=== PATIENT | male | born 1955 | race Caucasian/White ===

== ENCOUNTER → 2019-06-23 11:08 | Outpatient (BNVA) | payer OTHER, SELFPAY | PROVIDERS: Family Provider Family Medicine; PCP Family Medicine; Visit Provider Internal Medicine Cardiovascular Disease | DX: I48.91 Unspecified atrial fibrillation (principal) | CPT/HCPCS: 85610 ==

== ENCOUNTER → 2019-07-21 10:12 | Outpatient (BNVA) | payer OTHER, SELFPAY | PROVIDERS: Family Provider Family Medicine; PCP Family Medicine; Visit Provider Internal Medicine Cardiovascular Disease | DX: I48.91 Unspecified atrial fibrillation (principal) | CPT/HCPCS: 85610 ==

== ENCOUNTER → 2019-08-04 09:32 | Outpatient (BNVA) | payer OTHER, SELFPAY | PROVIDERS: Family Provider Family Medicine; PCP Family Medicine; Visit Provider Internal Medicine Cardiovascular Disease | DX: I48.91 Unspecified atrial fibrillation (principal) | CPT/HCPCS: 85610 ==

== ENCOUNTER → 2019-08-11 09:51 | Outpatient (BNVA) | payer OTHER, SELFPAY | PROVIDERS: Family Provider Family Medicine; PCP Family Medicine; Visit Provider Internal Medicine Cardiovascular Disease | DX: I48.91 Unspecified atrial fibrillation (principal); Z79.01 Long term (current) use of anticoagulants | CPT/HCPCS: 85610 ==

== ENCOUNTER → 2019-08-25 10:14 | Outpatient (BNVA) | payer OTHER, SELFPAY | PROVIDERS: Family Provider Family Medicine; PCP Family Medicine; Visit Provider Internal Medicine Cardiovascular Disease | DX: I48.91 Unspecified atrial fibrillation (principal) | CPT/HCPCS: 85610 ==

== ENCOUNTER → 2019-09-22 09:46 | Outpatient (BNVA) | payer OTHER, SELFPAY | PROVIDERS: Family Provider Family Medicine; PCP Family Medicine; Visit Provider Internal Medicine Cardiovascular Disease | DX: I48.91 Unspecified atrial fibrillation (principal) | CPT/HCPCS: 85610 ==

== ENCOUNTER → 2019-10-06 11:05 | Outpatient (BNVA) | payer OTHER, SELFPAY | PROVIDERS: Family Provider Family Medicine; PCP Family Medicine; Visit Provider Internal Medicine Cardiovascular Disease | DX: I48.91 Unspecified atrial fibrillation (principal) | CPT/HCPCS: 85610 ==

== ENCOUNTER → 2019-11-04 09:41 | Outpatient (BNVA) | payer OTHER, SELFPAY | PROVIDERS: Family Provider Family Medicine; PCP Family Medicine; Visit Provider Internal Medicine Cardiovascular Disease | DX: I48.91 Unspecified atrial fibrillation (principal) | CPT/HCPCS: 85610 ==

== ENCOUNTER → 2019-12-01 11:13 | Outpatient (BNVA) | payer OTHER, SELFPAY | PROVIDERS: Family Provider Family Medicine; PCP Family Medicine; Visit Provider Internal Medicine Cardiovascular Disease | DX: I48.91 Unspecified atrial fibrillation (principal) | CPT/HCPCS: 85610 ==

== ENCOUNTER → 2019-12-29 11:34 | Outpatient (BNVA) | payer OTHER, SELFPAY | PROVIDERS: Family Provider Family Medicine; PCP Family Medicine; Visit Provider Internal Medicine Cardiovascular Disease | DX: I48.91 Unspecified atrial fibrillation (principal); Z79.01 Long term (current) use of anticoagulants | CPT/HCPCS: 85610 ==

== ENCOUNTER → 2020-02-02 11:01 | Outpatient (BNVA) | payer OTHER, SELFPAY | PROVIDERS: Family Provider Family Medicine; PCP Family Medicine; Visit Provider Internal Medicine Cardiovascular Disease | DX: I48.91 Unspecified atrial fibrillation (principal); Z79.01 Long term (current) use of anticoagulants | CPT/HCPCS: 85610 ==

== ENCOUNTER 2020-02-04 13:34 | Outpatient (CLI) | payer OTHER, SELFPAY ==
[2020-02-04 14:10] VITALS: BMI 33.5
--- NOTE | 2020-02-04 14:10 | ECG_ITS ---
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 Interpretive Statements NAME OF STUDY: TREADMILL STRESS TEST INDICATION: DOT CLEARANCE RESULTS BRANDON TO RETURN TO WORK EXERCISE DATA: The patient was exercised by Zane protocol. Baseline heart rate was 109 beats per minute. Baseline blood pressure was 101/74 millimeters of mercury. Target heart rate was 157 beats per minute. Maximum heart rate achieved was 187, which was 119% of the target heart rate. Maximum blood pressure was 186/86 millimeters of mercury. Total exercise time was 4 minutes 49 seconds. Maximum METs achieved was 7.0, maximum VO2 was 24.5. The reason for ending the test was maximum effort achieved. The patient complained of during the stress test, which then resolved at the end of the test. ELECTROCARDIOGRAM: BASELINE: Showed atrial fibrillation, normal axis, no significant ST-T changes at the baseline noted. EXERCISE: At the peak exercise level, no significant ST-T changes suggestive of ischemia noted. RECOVERY: During the recovery period, heart rate dropped appropriately. No significant ST-T changes in the recovery suggestive of ischemia noted. CONCLUSION: 1. Exercise capacity poor. 2. Heart rate response was appropriate. 3. Blood pressure response was appropriate. 4. Symptoms not suggestive of ischemia. 5. Electrocardiogram portion of the stress test was not suggestive of ischemia. 6. Nuclear scan will be documented separately. Please note that due to poor exercise capacity and underachievement of METs EKG portion was stress test will be of low yield Electronically Signed On 02-04-2020 20:18:52 CDT by Dina Lin M.D. [email or web address]
[2020-02-04 14:32] VITALS: BP 156/80; PULSE 99
== END 2020-02-04 13:35 | disposition home or self-care (01) ==
LOC: CDL 13:39
PROVIDERS: PCP Family Medicine; Visit Provider Internal Medicine Cardiovascular Disease
DX: I35.0 Nonrheumatic aortic (valve) stenosis (principal); I48.91 Unspecified atrial fibrillation; Z79.01 Long term (current) use of anticoagulants; I25.10 Atherosclerotic heart disease of native coronary artery without angina pectoris
CPT/HCPCS: 93017

== ENCOUNTER → 2020-02-26 16:10 | Outpatient (BNVA) | payer OTHER, SELFPAY | PROVIDERS: PCP Family Medicine; Visit Provider Internal Medicine Cardiovascular Disease | DX: I48.91 Unspecified atrial fibrillation (principal); Z79.01 Long term (current) use of anticoagulants | CPT/HCPCS: 85610 ==

== ENCOUNTER → 2020-03-29 08:25 | Outpatient (BNVA) | payer OTHER, SELFPAY | PROVIDERS: PCP Family Medicine; Visit Provider Internal Medicine Cardiovascular Disease | DX: I48.91 Unspecified atrial fibrillation (principal); Z79.01 Long term (current) use of anticoagulants | CPT/HCPCS: 85610 ==

== ENCOUNTER → 2020-04-26 08:31 | Outpatient (BNVA) | payer OTHER, SELFPAY | PROVIDERS: PCP Family Medicine; Visit Provider Internal Medicine Cardiovascular Disease | DX: I48.91 Unspecified atrial fibrillation (principal); Z79.01 Long term (current) use of anticoagulants | CPT/HCPCS: 85610 ==

== ENCOUNTER → 2020-05-03 10:56 | Outpatient (BNVA) | payer OTHER, SELFPAY | PROVIDERS: PCP Family Medicine; Visit Provider Internal Medicine Cardiovascular Disease | DX: I48.91 Unspecified atrial fibrillation (principal); Z79.01 Long term (current) use of anticoagulants | CPT/HCPCS: 85610 ==

== ENCOUNTER → 2020-05-17 16:00 | Outpatient (BNVA) | payer OTHER, SELFPAY | PROVIDERS: PCP Family Medicine; Visit Provider Internal Medicine Cardiovascular Disease | DX: I48.91 Unspecified atrial fibrillation (principal); Z79.01 Long term (current) use of anticoagulants | CPT/HCPCS: 85610 ==

== ENCOUNTER → 2020-05-24 13:27 | Outpatient (BNVA) | payer OTHER, SELFPAY | PROVIDERS: PCP Family Medicine; Visit Provider Internal Medicine Cardiovascular Disease | DX: I48.91 Unspecified atrial fibrillation (principal); Z79.01 Long term (current) use of anticoagulants | CPT/HCPCS: 85610 ==

== ENCOUNTER → 2020-06-07 13:15 | Outpatient (BNVA) | payer OTHER, SELFPAY | PROVIDERS: PCP Family Medicine; Visit Provider Internal Medicine Cardiovascular Disease | DX: I48.91 Unspecified atrial fibrillation (principal) | CPT/HCPCS: 85610 ==

== ENCOUNTER → 2020-07-05 11:07 | Outpatient (BNVA) | payer OTHER, SELFPAY | PROVIDERS: PCP Family Medicine; Visit Provider Internal Medicine Cardiovascular Disease | DX: I48.91 Unspecified atrial fibrillation (principal); Z79.01 Long term (current) use of anticoagulants | CPT/HCPCS: 85610 ==

== ENCOUNTER → 2020-08-09 11:38 | Outpatient (BNVA) | payer OTHER, SELFPAY | PROVIDERS: PCP Family Medicine; Visit Provider Internal Medicine Cardiovascular Disease | DX: I48.91 Unspecified atrial fibrillation (principal); Z79.01 Long term (current) use of anticoagulants | CPT/HCPCS: 85610 ==

== ENCOUNTER → 2020-09-06 12:56 | Outpatient (BNVA) | payer OTHER, SELFPAY | PROVIDERS: PCP Family Medicine; Visit Provider Internal Medicine Cardiovascular Disease | DX: I48.91 Unspecified atrial fibrillation (principal); Z79.01 Long term (current) use of anticoagulants | CPT/HCPCS: 85610 ==

== ENCOUNTER → 2020-10-04 13:11 | Outpatient (BNVA) | payer OTHER, SELFPAY | PROVIDERS: PCP Family Medicine; Visit Provider Internal Medicine Cardiovascular Disease | DX: I48.91 Unspecified atrial fibrillation (principal); Z79.01 Long term (current) use of anticoagulants | CPT/HCPCS: 85610 ==

== ENCOUNTER → 2020-11-01 08:51 | Outpatient (BNVA) | payer OTHER, SELFPAY | PROVIDERS: PCP Family Medicine; Visit Provider Internal Medicine Cardiovascular Disease | DX: I48.91 Unspecified atrial fibrillation (principal); Z79.01 Long term (current) use of anticoagulants | CPT/HCPCS: 85610 ==

== ENCOUNTER → 2020-11-08 08:36 | Outpatient (BNVA) | payer OTHER, SELFPAY | PROVIDERS: PCP Family Medicine; Visit Provider Internal Medicine Cardiovascular Disease | DX: I48.91 Unspecified atrial fibrillation (principal); Z79.01 Long term (current) use of anticoagulants | CPT/HCPCS: 85610 ==

== ENCOUNTER → 2020-11-29 09:13 | Outpatient (BNVA) | payer OTHER, SELFPAY | PROVIDERS: PCP Family Medicine; Visit Provider Nurse Practitioner Family | DX: Z79.01 Long term (current) use of anticoagulants (principal) | CPT/HCPCS: 85610 ==

== ENCOUNTER → 2020-12-02 13:54 | Outpatient (BNVA) | payer OTHER, SELFPAY | PROVIDERS: PCP Family Medicine; Visit Provider Internal Medicine Cardiovascular Disease | DX: I48.91 Unspecified atrial fibrillation (principal); Z79.01 Long term (current) use of anticoagulants | CPT/HCPCS: 85610 ==

== ENCOUNTER → 2020-12-27 10:55 | Outpatient (BNVA) | payer OTHER, SELFPAY | PROVIDERS: PCP Family Medicine; Visit Provider Internal Medicine Cardiovascular Disease | DX: I48.91 Unspecified atrial fibrillation (principal); Z79.01 Long term (current) use of anticoagulants | CPT/HCPCS: 85610 ==

== ENCOUNTER → 2021-01-24 11:23 | Outpatient (BNVA) | payer OTHER, SELFPAY | PROVIDERS: PCP Family Medicine; Visit Provider Internal Medicine Cardiovascular Disease | DX: I48.91 Unspecified atrial fibrillation (principal) | CPT/HCPCS: 85610 ==

== ENCOUNTER → 2021-02-22 09:56 | Outpatient (BNVA) | payer OTHER, SELFPAY | PROVIDERS: PCP Family Medicine; Visit Provider Internal Medicine Cardiovascular Disease | DX: I48.91 Unspecified atrial fibrillation (principal); Z79.01 Long term (current) use of anticoagulants | CPT/HCPCS: 85610 ==

== ENCOUNTER → 2021-03-21 10:19 | Outpatient (BNVA) | payer OTHER, SELFPAY | PROVIDERS: PCP Family Medicine; Visit Provider Internal Medicine Cardiovascular Disease | DX: I48.91 Unspecified atrial fibrillation (principal); Z79.01 Long term (current) use of anticoagulants | CPT/HCPCS: 85610 ==

== ENCOUNTER → 2021-04-18 11:07 | Outpatient (BNVA) | payer OTHER, SELFPAY | PROVIDERS: PCP Family Medicine; Visit Provider Internal Medicine Cardiovascular Disease | DX: I48.91 Unspecified atrial fibrillation (principal); Z79.01 Long term (current) use of anticoagulants | CPT/HCPCS: 85610 ==

== ENCOUNTER → 2021-05-16 10:44 | Outpatient (BNVA) | payer OTHER, SELFPAY | PROVIDERS: PCP Family Medicine; Visit Provider Internal Medicine Cardiovascular Disease | DX: I48.91 Unspecified atrial fibrillation (principal); Z79.01 Long term (current) use of anticoagulants | CPT/HCPCS: 85610 ==

== ENCOUNTER → 2021-06-13 11:25 | Outpatient (BNVA) | payer OTHER, SELFPAY | PROVIDERS: PCP Family Medicine; Visit Provider Internal Medicine Cardiovascular Disease | DX: I48.91 Unspecified atrial fibrillation (principal) | CPT/HCPCS: 85610 ==

== ENCOUNTER → 2021-06-20 10:34 | Outpatient (BNVA) | payer OTHER, SELFPAY | PROVIDERS: PCP Family Medicine; Visit Provider Internal Medicine Cardiovascular Disease | DX: I48.91 Unspecified atrial fibrillation (principal) | CPT/HCPCS: 85610 ==

== ENCOUNTER → 2021-07-18 10:42 | Outpatient (BNVA) | payer OTHER, SELFPAY | PROVIDERS: PCP Family Medicine; Visit Provider Internal Medicine Cardiovascular Disease | DX: I48.91 Unspecified atrial fibrillation (principal) | CPT/HCPCS: 85610 ==

== ENCOUNTER → 2021-08-02 12:15 | Outpatient (BNVA) | payer OTHER, SELFPAY | PROVIDERS: PCP Family Medicine; Visit Provider Internal Medicine Cardiovascular Disease | DX: I48.91 Unspecified atrial fibrillation (principal) | CPT/HCPCS: 85610 ==

== ENCOUNTER → 2021-09-26 12:00 | Outpatient (BNVA) | payer OTHER, SELFPAY | PROVIDERS: PCP Family Medicine; Visit Provider Internal Medicine Cardiovascular Disease | DX: I48.91 Unspecified atrial fibrillation (principal) | CPT/HCPCS: 85610 ==

== ENCOUNTER → 2021-10-24 11:18 | Outpatient (BNVA) | payer OTHER, SELFPAY | PROVIDERS: PCP Family Medicine; Visit Provider Internal Medicine Cardiovascular Disease | DX: I48.91 Unspecified atrial fibrillation (principal) | CPT/HCPCS: 85610 ==

== ENCOUNTER → 2021-11-21 09:17 | Outpatient (BNVA) | payer SELFPAY | PROVIDERS: PCP Family Medicine; Visit Provider Internal Medicine Cardiovascular Disease | DX: I48.91 Unspecified atrial fibrillation (principal); Z79.01 Long term (current) use of anticoagulants | CPT/HCPCS: 85610 ==

== ENCOUNTER → 2021-11-28 09:30 | Outpatient (BNVA) | payer SELFPAY | PROVIDERS: PCP Family Medicine; Visit Provider Internal Medicine Cardiovascular Disease | DX: I48.91 Unspecified atrial fibrillation (principal); Z79.01 Long term (current) use of anticoagulants | CPT/HCPCS: 85610 ==

== ENCOUNTER → 2021-12-05 10:07 | Outpatient (BNVA) | payer SELFPAY | PROVIDERS: PCP Family Medicine; Visit Provider Internal Medicine Cardiovascular Disease | DX: I48.91 Unspecified atrial fibrillation (principal); Z79.01 Long term (current) use of anticoagulants | CPT/HCPCS: 85610 ==

== ENCOUNTER → 2021-12-29 08:59 | Outpatient (BNVA) | payer MEDICARE, SELFPAY | PROVIDERS: PCP Family Medicine | DX: Z79.01 Long term (current) use of anticoagulants (principal) | CPT/HCPCS: G0250 ==

== ENCOUNTER → 2022-01-30 09:18 | Outpatient (BNVA) | payer MEDICARE, SELFPAY | PROVIDERS: PCP Family Medicine | DX: I48.91 Unspecified atrial fibrillation (principal) | CPT/HCPCS: 85610 ==

== ENCOUNTER → 2022-02-27 14:33 | Outpatient (BNVA) | payer MEDICARE, SELFPAY | PROVIDERS: PCP Family Medicine; Visit Provider Internal Medicine | DX: I48.91 Unspecified atrial fibrillation (principal); Z79.01 Long term (current) use of anticoagulants | CPT/HCPCS: 85610; 99214 ==

== ENCOUNTER 2022-03-08 06:11 | Outpatient (CLI) | payer MEDICARE, SELFPAY ==
[2022-03-08 07:32] LABS: Basophils # 0.1 10^3/uL (0.0-0.1); Basophils % 1.2 %; Eosinophils # 0.2 10^3/uL (0.0-0.8); Eosinophils % 2.7 %; Hematocrit 47.8 % (42.0-52.0); Hemoglobin 16.3 g/dL (11.7-16.6); Lymphocytes # 2.6 10^3/uL (0.8-4.8); Lymphocytes % 43.3 %; Mean Corpuscular HGB Conc 34.1 g/dL (30.0-36.0); Mean Corpuscular Hemoglobin 31.3 pg (28.0-34.0); Mean Corpuscular Volume 91.7 fl (80-94); Mean Platelet Volume 10.5 fL (7.4-10.4); Monocytes # 0.6 10^3/uL (0.2-0.9); Monocytes % 9.6 %; Neutrophils # 2.56 10^3/uL (1.8-7.7); Nucleated Red Blood Cells % 0 %; Platelet Count 196 10^3/cmm (130-400); Red Blood Count 5.21 10^6/uL (4.1-5.3); White Blood Count 5.9 10^3/uL (4.0-10.0)
[2022-03-08 07:53] LABS: Alanine Aminotransferase 30 U/L (0-41); Albumin Level 3.9 g/dL (3.5-5.2); Alkaline Phosphatase 119 U/L (40-130); Anion Gap 13.4 (5-19); Aspartate Amino Transferase 22 U/L (0-40); Blood Urea Nitrogen 14 mg/dL (8-23); Calcium 9.1 mg/dL (8.5-10.5); Carbon Dioxide 24 mmol/L (22-29); Chloride 107 mmol/L (98-107); Chol HDL Ratio 3.85 mg/dL (1.0-5.00); Cholesterol 104 mg/dL (0-200); Globulin 2.7 g/dL (1.3-4.6); Glucose 123 mg/dL (65-115); HDL Cholesterol 27 mg/dL (60-100); LDL Cholesterol Calculated 56 mg/dL (50-129); LDL Cholesterol Direct 58 mg/dL (0-100); LDL HDL Ratio 2.07 RATIO (0.00-3.22); Osmolality Calculated 292 mOsm/kg (285-295); Potassium 4.4 mmol/L (3.5-5.1); Sodium 140 mmol/L (136-145); Total Bilirubin 0.7 mg/dL (0.15-1.2); Total Protein 6.6 g/dL (6.6-8.7); Triglycerides 107 mg/dL (0-150)
== END 2022-03-08 06:12 | disposition home or self-care (01) ==
LOC: LAB 06:14
PROVIDERS: PCP Family Medicine; Visit Provider Internal Medicine Cardiovascular Disease
DX: E78.5 Hyperlipidemia, unspecified (principal); I10 Essential (primary) hypertension; I25.10 Atherosclerotic heart disease of native coronary artery without angina pectoris
CPT/HCPCS: 36415; 80053; 80061; 83721; 85025

== ENCOUNTER → 2022-03-29 09:12 | Outpatient (BNVA) | payer MEDICARE, SELFPAY | PROVIDERS: PCP Family Medicine; Visit Provider Internal Medicine | DX: I48.91 Unspecified atrial fibrillation (principal); Z79.01 Long term (current) use of anticoagulants | CPT/HCPCS: 85610 ==

== ENCOUNTER → 2022-04-24 09:09 | Outpatient (BNVA) | payer MEDICARE, SELFPAY | PROVIDERS: PCP Family Medicine; Visit Provider Internal Medicine | DX: I48.91 Unspecified atrial fibrillation (principal); Z79.01 Long term (current) use of anticoagulants | CPT/HCPCS: 85610 ==

== ENCOUNTER → 2022-05-22 09:15 | Outpatient (BNVA) | payer MEDICARE, SELFPAY | PROVIDERS: PCP Family Medicine; Visit Provider Internal Medicine | DX: I48.91 Unspecified atrial fibrillation (principal); Z79.01 Long term (current) use of anticoagulants | CPT/HCPCS: 85610 ==

== ENCOUNTER → 2022-06-20 09:12 | Outpatient (BNVA) | payer MEDICARE, SELFPAY | PROVIDERS: PCP Family Medicine; Visit Provider Internal Medicine | DX: I48.91 Unspecified atrial fibrillation (principal); Z79.01 Long term (current) use of anticoagulants | CPT/HCPCS: 85610 ==

== ENCOUNTER → 2022-07-20 09:22 | Outpatient (BNVA) | payer MEDICARE, SELFPAY | PROVIDERS: PCP Family Medicine; Visit Provider Internal Medicine | DX: I48.91 Unspecified atrial fibrillation (principal) | CPT/HCPCS: 85610 ==

== ENCOUNTER → 2022-08-21 09:06 | Outpatient (BNVA) | payer MEDICARE, SELFPAY | PROVIDERS: PCP Family Medicine; Visit Provider Internal Medicine | DX: I48.91 Unspecified atrial fibrillation (principal) | CPT/HCPCS: 85610 ==

== ENCOUNTER → 2022-08-28 09:30 | Outpatient (BNVA) | payer MEDICARE, SELFPAY | PROVIDERS: PCP Family Medicine; Visit Provider Internal Medicine | DX: I48.91 Unspecified atrial fibrillation (principal) | CPT/HCPCS: 85610 ==

== ENCOUNTER → 2022-09-04 09:16 | Outpatient (BNVA) | payer MEDICARE, SELFPAY | PROVIDERS: PCP Family Medicine; Visit Provider Internal Medicine | DX: I48.91 Unspecified atrial fibrillation (principal) | CPT/HCPCS: 85610 ==

== ENCOUNTER → 2022-10-02 09:47 | Outpatient (BNVA) | payer MEDICARE, SELFPAY | PROVIDERS: PCP Family Medicine; Visit Provider Internal Medicine | DX: I48.91 Unspecified atrial fibrillation (principal) | CPT/HCPCS: 85610 ==

== ENCOUNTER → 2022-10-09 09:04 | Outpatient (BNVA) | payer MEDICARE, SELFPAY | PROVIDERS: PCP Family Medicine; Visit Provider Internal Medicine | DX: I48.91 Unspecified atrial fibrillation (principal) | CPT/HCPCS: 85610 ==

== ENCOUNTER → 2022-11-06 10:30 | Outpatient (BNVA) | payer MEDICARE, SELFPAY | PROVIDERS: PCP Family Medicine; Visit Provider Internal Medicine | DX: I48.91 Unspecified atrial fibrillation (principal) | CPT/HCPCS: 85610 ==

== ENCOUNTER → 2022-11-27 14:31 | Outpatient (BNVA) | payer MEDICARE, SELFPAY | PROVIDERS: PCP Family Medicine; Visit Provider Internal Medicine Cardiovascular Disease | DX: I48.91 Unspecified atrial fibrillation (principal); I25.10 Atherosclerotic heart disease of native coronary artery without angina pectoris; I10 Essential (primary) hypertension; E78.5 Hyperlipidemia, unspecified; Z79.01 Long term (current) use of anticoagulants; Z79.82 Long term (current) use of aspirin; Z87.891 Personal history of nicotine dependence | CPT/HCPCS: 99214 ==

== ENCOUNTER → 2022-12-04 09:15 | Outpatient (BNVA) | payer MEDICARE, SELFPAY | PROVIDERS: PCP Family Medicine; Visit Provider Internal Medicine Cardiovascular Disease | DX: I48.91 Unspecified atrial fibrillation (principal) | CPT/HCPCS: 85610 ==

== ENCOUNTER 2022-12-14 07:59 | Outpatient (CLI) | payer MEDICARE, SELFPAY ==
--- NOTE | 2022-12-14 08:15 | USCV_ITS ---
Gavin Ragland Age: 67 Gender: M : 1955 Exam Date: 12/14/2022 08:39 Ordering Phys: Lizeth Verduzco MD ([email or web address]) Technologist: OSVALDO [place] [facility] [place]ication: assess LVOT BP: 130 / 67 HR: 77 Rhythm: Sinus Technical Quality: Adequate MEASUREMENTS (Male / Female) Normal Values 2D ECHO LVOT Diameter 2.0 cm LV Ejection Fraction MOD 2C 71.0 % LV Ejection Fraction 2C AL 75.1 % LA Diameter 5.0 cm LA Width 4.5 cm LA Height 6.1 cm RA Width 3.7 cm RA Height 5.1 cm Aorta at Sinotubular Diameter 2.3 cm IVC Diameter 1.5 cm M-MODE Aortic Annulus Diameter 2.8 cm LA Ao Ratio MM 1.6 MV E Point Septal Separation 0.5 cm DOPPLER AV Peak Velocity 94.0 cm/s LVOT Peak Velocity 96.0 cm/s AV Area Cont Eq vti 2.9 cm squared AV Area Cont Eq pk 3.1 cm squared MV Peak Velocity 134.0 cm/s MV Area PHT 5.0 cm squared MV E' Velocity 54.5 cm/s Mitral E to MV E' Ratio 8.2 Mitral E to LV E' Lateral Ratio 6.6 Mitral E to LV E' Septal Ratio 10.7 TR Peak Velocity 246.8 cm/s TR Peak Gradient 24.4 mmHg TR Mean Velocity 217.0 cm/s TR Mean Gradient 19.0 mmHg TR Velocity Time Integral 95.9 cm TV Peak E Velocity 43.0 cm/s Right Atrial Pressure 3.0 mmHg Pulmonary Artery Systolic Pressu 27.4 mmHg PV Peak Velocity 147.0 cm/s RV Acceleration Time 0.1 s RV Ejection Time 0.3 s RV AcT/ET 0.2 FINDINGS Left Ventricle Normal left ventricular size, systolic function and increased wall thickness, with no regional wall motion abnormalities. Left ventricular ejection fraction is estimated at 65 %. Abnormal diastolic function. Right Ventricle Normal right ventricular size and systolic function. Right ventricular systolic pressure 27.4 mmHg. Right Atrium Normal right atrial size. Left Atrium Moderately increased left atrial size. Mitral Valve Structurally normal mitral valve. No mitral valve stenosis. Trace mitral valve regurgitation. Aortic Valve Structurally normal trileaflet aortic valve. No aortic valve stenosis. No aortic valve regurgitation. Tricuspid Valve Structurally normal tricuspid valve. No tricuspid valve stenosis. Trace tricuspid valve regurgitation. Pulmonic Valve Pulmonic valve not well visualized. No pulmonary valve stenosis. Trace pulmonary valve regurgitation. Pericardium No pericardial effusion. Aorta Normal size aortic root and proximal ascending aorta. IVC Normal IVC dimension with >50% respiratory change of the inferior vena cava. CONCLUSIONS 1. Normal left ventricular size, systolic function and increased wall thickness, with no regional wall motion abnormalities. Left ventricular ejection fraction is estimated at 65 %. Abnormal diastolic function. 2. No aortic valve stenosis. No aortic valve regurgitation.Peak LVOT gradient with valsalva of 7 mm Hg. 3. When compared to study dated 11/19/17, LVOT gradient has decreased significantly. Lizeth Verduzco MD (Electronically Signed) Final Date: 18 December 2022 03:51 S
== END 2022-12-14 08:00 | disposition home or self-care (01) ==
PROVIDERS: PCP Family Medicine; Visit Provider Internal Medicine Cardiovascular Disease
DX: R06.02 Shortness of breath (principal); I42.2 Other hypertrophic cardiomyopathy
CPT/HCPCS: 93306

== ENCOUNTER → 2022-12-25 10:05 | Outpatient (BNVA) | payer MEDICARE, SELFPAY | PROVIDERS: PCP Family Medicine; Visit Provider Internal Medicine Cardiovascular Disease | DX: I48.91 Unspecified atrial fibrillation (principal) | CPT/HCPCS: 85610 ==

== ENCOUNTER → 2023-01-01 09:24 | Outpatient (BNVA) | payer MEDICARE, SELFPAY | PROVIDERS: PCP Family Medicine | DX: I48.91 Unspecified atrial fibrillation (principal) | CPT/HCPCS: 85610 ==

== ENCOUNTER → 2023-01-29 09:19 | Outpatient (BNVA) | payer MEDICARE, SELFPAY | PROVIDERS: PCP Family Medicine | DX: I48.91 Unspecified atrial fibrillation (principal) | CPT/HCPCS: 85610 ==

== ENCOUNTER → 2023-02-26 09:11 | Outpatient (BNVA) | payer MEDICARE, SELFPAY | PROVIDERS: PCP Family Medicine; Visit Provider Internal Medicine Cardiovascular Disease | DX: I48.91 Unspecified atrial fibrillation (principal) | CPT/HCPCS: 85610 ==

== ENCOUNTER → 2023-03-28 09:48 | Outpatient (BNVA) | payer MEDICARE, SELFPAY | PROVIDERS: PCP Family Medicine; Visit Provider Internal Medicine Cardiovascular Disease | DX: I48.91 Unspecified atrial fibrillation (principal) | CPT/HCPCS: 85610 ==

== ENCOUNTER → 2023-04-25 09:46 | Outpatient (BNVA) | payer MEDICARE, SELFPAY | PROVIDERS: PCP Family Medicine; Visit Provider Internal Medicine Cardiovascular Disease | DX: I48.91 Unspecified atrial fibrillation (principal) | CPT/HCPCS: 85610 ==

== ENCOUNTER → 2023-05-30 10:23 | Outpatient (BNVA) | payer MEDICARE, SELFPAY | PROVIDERS: PCP Family Medicine; Visit Provider Internal Medicine Cardiovascular Disease | DX: I48.91 Unspecified atrial fibrillation (principal) | CPT/HCPCS: 85610 ==

== ENCOUNTER → 2023-06-27 09:00 | Outpatient (BNVA) | payer MEDICARE, SELFPAY | PROVIDERS: PCP Family Medicine; Visit Provider Internal Medicine Cardiovascular Disease | DX: I48.91 Unspecified atrial fibrillation (principal) | CPT/HCPCS: 85610 ==

== ENCOUNTER → 2023-07-23 16:24 | Outpatient (BNVA) | payer MEDICARE, SELFPAY | PROVIDERS: PCP Family Medicine; Visit Provider Internal Medicine Cardiovascular Disease | DX: I48.91 Unspecified atrial fibrillation (principal) | CPT/HCPCS: 85610 ==

== ENCOUNTER → 2023-08-20 09:14 | Outpatient (BNVA) | payer MEDICARE, SELFPAY | PROVIDERS: PCP Family Medicine; Visit Provider Internal Medicine | DX: I48.91 Unspecified atrial fibrillation (principal); Z79.01 Long term (current) use of anticoagulants | CPT/HCPCS: 36415; 85610 ==

== ENCOUNTER → 2023-09-06 09:07 | Outpatient (BNVA) | payer MEDICARE, SELFPAY | PROVIDERS: PCP Family Medicine; Visit Provider Nurse Practitioner Family | DX: I42.2 Other hypertrophic cardiomyopathy (principal); I48.11 Longstanding persistent atrial fibrillation; I25.10 Atherosclerotic heart disease of native coronary artery without angina pectoris; I10 Essential (primary) hypertension; Z87.891 Personal history of nicotine dependence; Z79.01 Long term (current) use of anticoagulants | CPT/HCPCS: 99214 ==

== ENCOUNTER → 2023-09-17 09:12 | Outpatient (BNVA) | payer MEDICARE, SELFPAY | PROVIDERS: PCP Family Medicine; Visit Provider Internal Medicine | DX: I48.11 Longstanding persistent atrial fibrillation (principal) | CPT/HCPCS: 85610 ==

== ENCOUNTER → 2023-10-15 09:17 | Outpatient (BNVA) | payer MEDICARE, SELFPAY | PROVIDERS: PCP Family Medicine; Visit Provider Internal Medicine | DX: I48.11 Longstanding persistent atrial fibrillation (principal) | CPT/HCPCS: 85610 ==

== ENCOUNTER → 2023-11-14 09:18 | Outpatient (BNVA) | payer MEDICARE, SELFPAY | PROVIDERS: PCP Family Medicine; Visit Provider Internal Medicine | DX: I48.11 Longstanding persistent atrial fibrillation (principal) | CPT/HCPCS: 85610 ==

== ENCOUNTER → 2023-12-10 08:46 | Outpatient (BNVA) | payer MEDICARE, SELFPAY | PROVIDERS: PCP Family Medicine; Visit Provider Internal Medicine | DX: I48.11 Longstanding persistent atrial fibrillation (principal) | CPT/HCPCS: 85610 ==

== ENCOUNTER → 2024-01-07 08:31 | Outpatient (BNVA) | payer MEDICARE, SELFPAY | PROVIDERS: PCP Family Medicine; Visit Provider Internal Medicine | DX: I48.11 Longstanding persistent atrial fibrillation (principal) | CPT/HCPCS: 85610 ==

== ENCOUNTER → 2024-02-04 08:45 | Outpatient (BNVA) | payer MEDICARE, SELFPAY | PROVIDERS: PCP Family Medicine; Visit Provider Internal Medicine | DX: I48.11 Longstanding persistent atrial fibrillation (principal) | CPT/HCPCS: 85610 ==

== ENCOUNTER → 2024-02-29 08:43 | Outpatient (BNVA) | payer MEDICARE, SELFPAY | PROVIDERS: PCP Family Medicine; Visit Provider Internal Medicine | DX: I48.11 Longstanding persistent atrial fibrillation (principal) | CPT/HCPCS: 85610 ==

== ENCOUNTER → 2024-03-31 08:48 | Outpatient (BNVA) | payer MEDICARE, SELFPAY | PROVIDERS: PCP Family Medicine; Visit Provider Internal Medicine | DX: I48.11 Longstanding persistent atrial fibrillation (principal) | CPT/HCPCS: 85610 ==

== ENCOUNTER 2024-04-08 06:53 | Emergency (ER) | payer MEDICARE, SELFPAY ==
[2024-04-08 07:12] VITALS: BP 151/93; PULSE 75; RESP 18; TEMP 36.7; O2SAT 100
--- NOTE | 2024-04-08 07:51 | XR_ITS ---
WS: [id number] Exam: XR elbow LT 2V [id number] Date/Time of Exam: 04/08/2024 7:51 AM Reason For Exam: PAIN, SWELLING No acute fracture or dislocation. The joints are preserved. There is marked posterior soft tissue swe lling. Bone spurring of the posterior proximal ulna. XR/XR elbow LT 2V [id number] IMPRESSION: 1. Marked posterior soft tissue edema. No bony injury.
[2024-04-08 08:21] VITALS: O2SAT 98
--- NOTE | 2024-04-08 08:37 | W.ED.EXTPRO ---
HPI - Extremity Problem General: Chief complaint: Extremity Problem,Nontraumatic Stated complaint: Lt arm swollen Time Seen by Provider: 04/08/24 08:01 History of Present Illness: 69-year-old male presents emergency room going left elbow pain and swelling. Began overnight. No specific injury that he can recall. He is on warfarin he states he is last checked a couple weeks ago and it was normal he has atrial fibrillation. Some mild discomfort with full flexion no other pain no numbness or tingling to the hand obvious marked swelling to the forearm and elbow over the olecranon extending distally. Associated symptoms: Deny chest pain, fever(s) or rash Related Data Home Medications Medication Instructions Recorded Confirmed aspirin 81 mg chewable tablet 81 mg PO DAILY 01/07/20 04/08/24 acetaminophen-DM 1,000 mg-30 mg/30 30 ml PO QAM 04/08/24 04/08/24 mL oral liquid (Daytime Cold and Cough) [id number] 12.5 30 ml PO QID PRN congestion 04/08/24 04/08/24 mg-30 mg-1,000 mg/30 mL oral liquid Previous Rx's Medication Instructions Recorded nitroglycerin 0.4 mg sublingual 0.4 mg sublingual Q5M PRN chest 10/26/21 tablet pain #25 tabs atorvastatin 80 mg tablet 80 mg PO DAILY #90 tabs 06/04/23 metoprolol tartrate 25 mg tablet 25 mg PO BID #180 tabs 06/04/23 warfarin 5 mg tablet 5 mg PO DAILY #90 tabs 06/29/23 warfarin 7.5 mg tablet 7.5 mg PO DAILY #90 tabs 08/13/23 Allergies Allergy/AdvReac Type Severity Reaction Status Date / Time No Known Allergies Allergy Verified 09/06/23 09:14 Review of Systems Const: Denies: fever(s) or chills Card: Denies: chest pain Resp: Denies: dyspnea GI: Denies: abdominal pain : Denies: dysuria, urinary frequency or urinary urgency Musc: Denies: neck pain or back pain Skin/Breast: Denies: rash PFS ED PFSH: Medical History Hyperlipidemia History of ST elevation myocardial infarction (STEMI) KULDEEP to mid RCA 03/2015 Coronary artery disease Anticoagulated on warfarin Aortic stenosis History of colon cancer Atrial fibrillation nonvalvular, anticoagulated with warfarin Surgical History History of colon surgery Hx of hernia repair Hx laparoscopic cholecystectomy Family History Father CAD (coronary artery disease) Mother Diabetes Social History Smoking and tobacco/nicotine status: former use of tobacco/nicotine Quit status (tobacco/nicotine): has quit using Year quit tobacco: 1985 Former quit date comment: PPD x 10-15 Second hand smoke exposure: Yes Alcohol intake: never Substance/Drug Use: never Lives independently: Yes Household members: spouse Marital status: Current occupational status: employed Current occupation: [employer] Current gender identity: Male Physical Exam Const: COMMON NORMALS: no acute distress GENERAL APPEARANCE: cooperative and comfortable ORIENTATION/CONSCIOUSNESS: Yes awake, Yes oriented to person, Yes oriented to place and Yes oriented to time HENMT: COMMON NORMALS: normocephalic, atraumatic and hearing grossly normal bilaterally HEAD & SCALP: normocephalic and atraumatic Resp: COMMON NORMALS: normal respiratory effort, No retractions, No use of accessory muscles and clear to auscultation bilaterally AUSCULTATION: clear to auscultation bilaterally Cardio: COMMON NORMALS: regular rate, regular rhythm and No murmurs present (Cardio) RATE: regular rate RHYTHM: regular rhythm Extremity: COMMON NORMALS: normal to inspection, capillary refill normal, no clubbing, cyanosis or edema, no calf tenderness and no pedal edema OTHER: Emanation of the left elbow there is significant swelling of olecranon process with forearm swelling that is circumferential and extends distally to the mid forearm. Mild ecchymosis no abrasion or laceration. Neuro: SENSORIUM/ORIENTATION: Yes oriented to person, Yes oriented to place and Yes oriented to time Skin: COMMON NORMALS: no rashes or lesions noted GENERAL SKIN EXAM: no rashes or lesions noted Course Vital Signs: Vital signs: Vital Signs Temperature 98.1 F 04/08/24 07:12 Pulse Rate 76 04/08/24 12:22 Respiratory Rate 18 04/08/24 07:12 Blood Pressure 163/103 04/08/24 12:22 Pulse Oximetry 98 10/22/24 12:22 Oxygen Delivery Me thod Room Air 04/08/24 12:09 MDM - Extremity (Nontraumatic) Medical Decision Making Hemorrhagic electron bursitis likely secondary to his anticoagulation status suspect he had minor trauma that triggered it. Radiology reportedly can see a small area of bleeding but looks to be tamponaded off. Will have him follow-up with orthopedics. At this point I think he can continue taking his Coumadin he is not over anticoagulated. Lab Data I reviewed the patient's lab results. 04/08/24 09:06 04/08/24 09:06 Radiology Impressions Elbow X-Ray 04/08/24 07:51 IMPRESSION: 1. Marked posterior soft tissue edema. No bony injury. Upper Extremity CTA 04/08/24 08:43 IMPRESSION: 1. Findings most compatible with hemorrhagic olecranon bursitis. 2. Tiny nondisplaced fracture involving the olecranon enthesophyte. 3. Tiny opacified vessel overlying the olecranon hematoma likely the source of hemorrhage. Suggestion of a tiny amount of active bleeding but no significant pooling of contrast. Vessel is located superficially overlying the olecranon bursa. Notified Randall Chandler DO at 04/08/2024 12:09 PM. Laboratory Results WBC 7.68 10^3/uL (3.29-11.43) 04/08/24 09:06 RBC 5.20 10^6/uL (3.85-5.65) 04/08/24 09:06 Hgb 16.30 g/dL (11.27-16.99) 04/08/24 09:06 Hct 48.7 % (37-53) 04/08/24 09:06 MCV 93.7 fl (82-101) 04/08/24 09:06 MCH 31.3 pg (27-33) 04/08/24 09:06 MCHC 33.5 g/dL (30-55) 04/08/24 09:06 RDW 13.0 % (12.1-15.1) 04/08/24 09:06 Plt Count 198 10^3/cmm (157-399) 04/08/24 09:06 MPV 9.6 fL (7.4-10.4) 04/08/24 09:06 Neut % (Auto) 62.6 % 04/08/24 09:06 Lymph % (Auto) 25.8 % 04/08/24 09:06 [place] % (Auto) 7.2 % 04/08/24 09:06 Eos % (Auto) 3.4 % 04/08/24 09:06 Baso % (Auto) 0.9 % 04/08/24 09:06 Neut # (Auto) 4.81 10^3/uL (1.8-7.7) 04/08/24 09:06 Lymph # (Auto) 2.0 10^3/uL (0.8-4.8) 04/08/24 09:06 [place] # (Auto) 0.6 10^3/uL (0.2-0.9) 04/08/24 09:06 Eos # (Auto) 0.3 10^3/uL (0.0-0.8) 04/08/24 09:06 Baso # (Auto) 0.1 10^3/uL (0.0-0.1) 04/08/24 09:06 Nucleated RBC % (auto) 0 % 04/08/24 09:06 Nucleated RBCs # 0.0 /100WBC 04/08/24 09:06 PT 27.40 SECONDS (12.1-14.9) H 04/08/24 09:06 INR 2.43 (0.8-1.2) H 04/08/24 09:06 Sodium 137 mmol/L (136-145) 04/08/24 09:06 Potassium 5.3 mmol/L (3.5-5.1) H 04/08/24 09:06 Chloride 105 mmol/L (98-107) 04/08/24 09:06 Carbon Dioxide 23 mmol/L (22-29) 04/08/24 09:06 Anion Gap 14.3 (5-19) 04/08/24 09:06 BUN 14 mg/dL (8-23) 04/08/24 09:06 Creatinine 0.9 mg/dL (0.7-1.2) 04/08/24 09:06 GFR Calculation 83.9 mL/min (90-130) L 04/08/24 09:06 Glucose 167 mg/dL (65-115) H 04/08/24 09:06 Calculated Osmolality 288 mOsm/kg (285-295) 04/08/24 09:06 Calcium 8.5 mg/dL (8.5-10.5) 04/08/24 09:06 Total Bilirubin 1.0 mg/dL (0.15-1.2) 04/08/24 09:06 AST 28 U/L (0-40) 04/08/24 09:06 ALT 39 U/L (0-41) 04/08/24 09:06 Alkaline Phosphatase 100 U/L (40-130) 04/08/24 09:06 Total Protein 7.0 g/dL (6.6-8.7) 04/08/24 09:06 Albumin 4.3 g/dL (3.5-5.2) 04/08/24 09:06 Globulin 2.7 g/dL (1.3-4.6) 04/08/24 09:06 All radiology interpretation(s) finalized by discharge Discharge Plan Discharge Patient Disposition: Home Clinical Impression: Olecranon bursitis, left elbow Condition: Stable Prescriptions: No Action aspirin 81 mg tablet,chewable 81 mg PO DAILY nitroglycerin 0.4 mg tablet, sublingual 0.4 mg SUBLINGUAL Q5M PRN (Reason: chest pain) Qty: 25 2RF Rx Instructions: do not exceed 3 doses per episode metoprolol tartrate 25 mg tablet 25 mg PO BID Qty: 180 3RF atorvastatin 80 mg tablet 80 mg PO DAILY Qty: 90 3RF warfarin 5 mg tablet 5 mg PO DAILY Qty: 90 1RF Protocol: Dose Management Condition: Sunday Dose/Route: 7.5 mg Instruction: 1 x 7.5 mg tablet Condition: Sunday Dose/Route: 5 mg Instruction: 1 x 5 mg tablet Condition: Sunday Dose/Route: 7.5 mg Instruction: 1 x 7.5 mg tablet Condition: Sunday Dose/Route: 5 mg Instruction: 1 x 5 mg tablet Condition: Dose/Route: 7.5 mg Instruction: 1 x 7.5 mg tablet Condition: Sunday Dose/Route: 5 mg Instruction: 1 x 5 mg tablet Condition: Sunday Dose/Route: 7.5 mg Instruction: 1 x 7.5 mg tablet Protocol Text: Adjustment Start Date: Sunday03/31/24 INR Value: 27.7 Seconds INR Date: 03/31/24 Recheck Date: 04/28/24 warfarin 7.5 mg tablet 7.5 mg PO DAILY Qty: 90 1RF Protocol: Dose Management Condition: Sunday Dose/Route: 7.5 mg Instruction: 1 x 7.5 mg tablet Condition: Sunday Dose/Route: 5 mg Instruction: 1 x 5 mg tablet Condition: Sunday Dose/Route: 7.5 mg Instruction: 1 x 7.5 mg tablet Condition: Sunday Dose/Route: 5 mg Instruction: 1 x 5 mg tablet Condition: Dose/Route: 7.5 mg Instruction: 1 x 7.5 mg tablet Condition: Sunday Dose/Route: 5 mg Instruction: 1 x 5 mg tablet Condition: Sunday Dose/Route: 7.5 mg Instruction: 1 x 7.5 mg tablet Protocol Text: Adjustment Start Date: Sunday03/31/24 INR Value: 27.7 Seconds INR Date: 03/31/24 Recheck Date: 04/28/24 Night Time Cold-Flu 12.5-30-1,000 mg/30 mL Liquid 30 ml PO QID PRN (Reason: congestion ) Daytime Cold and Cough 1,000-30 mg/30 mL Liquid 30 ml PO QAM Discharge Orders: Discharge ED (Routine); Ordered 04/08/24 Ordered By: Randall Chandler Referrals: Hanna Monroy MD [Primary Care Provider] - Discharge Diet: Usual diet Discharge Activity: Increase activity as tolerated Patient Instructions: Opioid Safety, Pain Management Activity Restrictions/Additional Instructions: Thank you for choosing [facility] for your healthcare needs today. It is very important that you follow up as instructed or that you return to the Emergency Department should you have concerns or if your condition changes or worsens in any way. You were seen in the emergency room for swelling of your left elbow. You are found to have a hemorrhagic bursitis. There is bleeding in the bursa on the elbow likely related to your Coumadin. Your INR was not excessively elevated. Recommend use a sling and limit the motion of the elbow for the next 1 to 2 days to allow the bleeding to settle. Your hemoglobin today is stable. We would recommend that you follow-up with orthopedics. Coding Level of Care Code ED Rn Oncology for Alexandra Mcdonnell
--- NOTE | 2024-04-08 08:43 | CT_ITS ---
WS: [id number] CTA LEFT upper extremity TECHNIQUE: Contrast enhanced CTA of the LEFT upper extremity with coronal and sagittal reformatted im ages and maximum intensity projection (MIP) images. NASCET criteria utilized. CLINICAL INFORMATION: Forearm and elbow swelling on Coumadin DLP: 902.[address] scans at [facility] use at least one of these dose optimization techniques: automated e xposure control; mA and/or kV adjustment per patient size (includes targeted exams where dose is matc hed to clinical indication); or iterative reconstruction. FINDINGS: Enthesophyte with suggestion of a tiny fracture involving the mid and distal enthesophyte without sig nificant displacement. Large amount of soft tissue swelling overlying the upper arm and elbow with ov erlying hematoma dorsally most compatible with hemorrhagic olecranon bursitis. Small opacified vessel in this area overlying the olecranon bursa likely the source of hemorrhage. No other acute findings. CT/[place] [id number] IMPRESSION: 1. Findings most compatible with hemorrhagic olecranon bursitis. 2. Tiny nondisplaced fracture involving the olecranon enthesophyte. 3. Tiny opacified vessel overlying the olecranon hematoma likely the source of hemorrhage. Suggestion of a tiny amount of active bleeding but no significant pooling of contrast. Vessel is located superficially overlying the olecranon bu rsa. Notified Randall Chandler DO at 04/08/2024 12:09 PM.
[2024-04-08 09:28] LABS: Basophils # 0.1 10^3/uL (0.0-0.1); Basophils % 0.9 %; Eosinophils # 0.3 10^3/uL (0.0-0.8); Eosinophils % 3.4 %; Hematocrit 48.7 % (37-53); Lymphocytes % 25.8 %; Mean Corpuscular HGB Conc 33.5 g/dL (30-55); Mean Corpuscular Hemoglobin 31.3 pg (27-33); Mean Corpuscular Volume 93.7 fl (82-101); Mean Platelet Volume 9.6 fL (7.4-10.4); Monocytes # 0.6 10^3/uL (0.2-0.9); Monocytes % 7.2 %; Neutrophils # 4.81 10^3/uL (1.8-7.7); Neutrophils % 62.6 %; Nucleated Red Blood Cells % 0 %; Platelet Count 198 10^3/cmm (157-399); White Blood Count 7.68 10^3/uL (3.29-11.43)
[2024-04-08 09:42] LABS: INR 2.43 (0.8-1.2)
[2024-04-08 10:12] LABS: Alanine Aminotransferase 39 U/L (0-41); Albumin Level 4.3 g/dL (3.5-5.2); Alkaline Phosphatase 100 U/L (40-130); Anion Gap 14.3 (5-19); Aspartate Amino Transferase 28 U/L (0-40); Blood Urea Nitrogen 14 mg/dL (8-23); Calcium 8.5 mg/dL (8.5-10.5); Carbon Dioxide 23 mmol/L (22-29); Chloride 105 mmol/L (98-107); Globulin 2.7 g/dL (1.3-4.6); Glomerular Filtration Rate 83.9 mL/min (90-130); Glucose 167 mg/dL (65-115); Osmolality Calculated 288 mOsm/kg (285-295); Potassium 5.3 mmol/L (3.5-5.1); Sodium 137 mmol/L (136-145)
[2024-04-08] MEDS: iohexol 350 mg/mL 500 mL Btl (per mL) IV (11:30)
--- NOTE | 2024-04-08 12:08 | PC.NURSE ---
pt had IV to right AC that appears to have infiltrated, swelling noted around site. IV removed with catheter intact.
[2024-04-08 12:09] VITALS: BP 164/103; PULSE 74; O2SAT 98
[2024-04-08 12:22] VITALS: BP 163/103; PULSE 76; O2SAT 98
--- NOTE | 2024-04-09 09:53 | DCPLANNER ---
Message sent to ortho for follow up.
== END 2024-04-08 12:23 | disposition home or self-care (01) ==
PROVIDERS: Emergency Provider Family Medicine; PCP Family Medicine
DX: M70.22 Olecranon bursitis, left elbow (principal); Z79.82 Long term (current) use of aspirin; Z79.01 Long term (current) use of anticoagulants; Z87.891 Personal history of nicotine dependence; I25.2 Old myocardial infarction; I25.10 Atherosclerotic heart disease of native coronary artery without angina pectoris; Z85.038 Personal history of other malignant neoplasm of large intestine
CPT/HCPCS: 36415; 73070; 73206; 80053; 85025; 85610; 99285

== ENCOUNTER → 2024-04-17 13:27 | Outpatient (BNVA) | payer MEDICARE, SELFPAY | PROVIDERS: PCP Family Medicine; Visit Provider Orthopaedic Surgery | DX: M25.529 Pain in unspecified elbow (principal) | CPT/HCPCS: 99203 ==

== ENCOUNTER 2024-04-23 07:51 | Outpatient (RCR) | payer MEDICARE, SELFPAY | END 2024-05-17 23:59 | disposition home or self-care (01) | LOC: SOT 07:51 | PROVIDERS: Visit Provider Orthopaedic Surgery | DX: M70.20 Olecranon bursitis, unspecified elbow (principal) | CPT/HCPCS: 97035; 97110; 97165 ==

== ENCOUNTER → 2024-04-28 08:40 | Outpatient (BNVA) | payer MEDICARE, SELFPAY | PROVIDERS: PCP Family Medicine; Visit Provider Internal Medicine | DX: I48.11 Longstanding persistent atrial fibrillation (principal) | CPT/HCPCS: 85610 ==

== ENCOUNTER → 2024-05-22 11:20 | Outpatient (BNVA) | payer MEDICARE, SELFPAY | PROVIDERS: PCP Family Medicine; Visit Provider Internal Medicine Cardiovascular Disease | DX: R07.9 Chest pain, unspecified (principal) | CPT/HCPCS: 93005; 99214 ==

== ENCOUNTER → 2024-05-26 08:46 | Outpatient (BNVA) | payer MEDICARE, SELFPAY | PROVIDERS: PCP Family Medicine; Visit Provider Internal Medicine | DX: I48.11 Longstanding persistent atrial fibrillation (principal) | CPT/HCPCS: 85610 ==

== ENCOUNTER → 2024-06-23 08:43 | Outpatient (BNVA) | payer MEDICARE, SELFPAY | PROVIDERS: PCP Family Medicine; Visit Provider Internal Medicine Cardiovascular Disease | DX: I48.11 Longstanding persistent atrial fibrillation (principal) | CPT/HCPCS: 85610 ==

== ENCOUNTER → 2024-07-21 08:41 | Outpatient (BNVA) | payer MEDICARE, SELFPAY | PROVIDERS: PCP Family Medicine; Visit Provider Internal Medicine Cardiovascular Disease | DX: I48.11 Longstanding persistent atrial fibrillation (principal) | CPT/HCPCS: 85610 ==

== ENCOUNTER → 2024-08-18 08:59 | Outpatient (BNVA) | payer MEDICARE, SELFPAY | PROVIDERS: PCP Family Medicine; Visit Provider Internal Medicine Cardiovascular Disease | DX: I48.11 Longstanding persistent atrial fibrillation (principal) | CPT/HCPCS: 85610 ==

== ENCOUNTER → 2024-09-16 09:02 | Outpatient (BNVA) | payer MEDICARE, SELFPAY | PROVIDERS: PCP Family Medicine; Visit Provider Internal Medicine Cardiovascular Disease | DX: I48.11 Longstanding persistent atrial fibrillation (principal) | CPT/HCPCS: 85610 ==

== ENCOUNTER → 2024-11-11 09:09 | Outpatient (BNVA) | payer MEDICARE, SELFPAY | PROVIDERS: PCP Family Medicine; Visit Provider Internal Medicine | DX: I48.11 Longstanding persistent atrial fibrillation (principal) | CPT/HCPCS: 85610 ==

== ENCOUNTER → 2024-12-08 08:48 | Outpatient (BNVA) | payer MEDICARE, SELFPAY | PROVIDERS: PCP Family Medicine; Visit Provider Internal Medicine | DX: I48.11 Longstanding persistent atrial fibrillation (principal) | CPT/HCPCS: 85610 ==

== ENCOUNTER → 2024-12-18 08:43 | Outpatient (BNVA) | payer MEDICARE, SELFPAY | PROVIDERS: PCP Family Medicine; Visit Provider Internal Medicine | DX: I48.11 Longstanding persistent atrial fibrillation (principal) | CPT/HCPCS: 85610 ==

== ENCOUNTER → 2025-01-06 09:27 | Outpatient (BNVA) | payer MEDICARE, SELFPAY | PROVIDERS: PCP Family Medicine; Visit Provider Internal Medicine Cardiovascular Disease | DX: I25.10 Atherosclerotic heart disease of native coronary artery without angina pectoris (principal); I10 Essential (primary) hypertension; E78.5 Hyperlipidemia, unspecified; I48.91 Unspecified atrial fibrillation; I42.2 Other hypertrophic cardiomyopathy; Z79.01 Long term (current) use of anticoagulants; Z87.891 Personal history of nicotine dependence; Z79.82 Long term (current) use of aspirin; I25.2 Old myocardial infarction; Z95.5 Presence of coronary angioplasty implant and graft | CPT/HCPCS: 99214 ==

== ENCOUNTER → 2025-01-19 08:35 | Outpatient (BNVA) | payer MEDICARE, SELFPAY | PROVIDERS: PCP Family Medicine; Visit Provider Internal Medicine Cardiovascular Disease | DX: I48.11 Longstanding persistent atrial fibrillation (principal); I48.91 Unspecified atrial fibrillation | CPT/HCPCS: 85610 ==

== ENCOUNTER → 2025-02-17 08:32 | Outpatient (BNVA) | payer MEDICARE, SELFPAY | PROVIDERS: PCP Family Medicine; Visit Provider Internal Medicine | DX: I48.11 Longstanding persistent atrial fibrillation (principal) | CPT/HCPCS: 85610 ==

== ENCOUNTER → 2025-03-19 09:02 | Outpatient (BNVA) | payer MEDICARE, SELFPAY | PROVIDERS: PCP Family Medicine; Visit Provider Internal Medicine | DX: I48.11 Longstanding persistent atrial fibrillation (principal) | CPT/HCPCS: 85610 ==

== ENCOUNTER → 2025-04-20 08:56 | Outpatient (BNVA) | payer MEDICARE, SELFPAY | PROVIDERS: PCP Family Medicine; Visit Provider Internal Medicine | DX: I48.11 Longstanding persistent atrial fibrillation (principal) | CPT/HCPCS: 85610 ==

== ENCOUNTER → 2025-05-18 08:43 | Outpatient (BNVA) | payer MEDICARE, SELFPAY | PROVIDERS: PCP Family Medicine; Visit Provider Internal Medicine | DX: I48.11 Longstanding persistent atrial fibrillation (principal) | CPT/HCPCS: 85610 ==